=== PATIENT | male | born 1960 | race Caucasian/White ===

== ENCOUNTER → 2016-07-07 | Outpatient (CLI) | payer OTHER ==
[~2016-07-07] MED LIST: ALBUTEROL SULF8.5 GM IH; ARTHROTEC 751 TABLET; ASPIR 8181 M1 PO; BENICAR40 MG PO; CARDIZEM CD,CA120 MG; CARDURA2 M1 PO; CLONAZEPAM0.5 MG PO; CYCLOBENZAPRINE10 M1 PO; CYMBALTA30 MG PO; ELAVIL25 MG PO; HYDROCHLOROTHIA25 MG; LAMICTAL100 MG PO; LOPRESSOR100 M1 PO; Lopressor PO; PAXIL CR12.5 MG; PROTONIX40 MG PO; RISPERDAL1 MG PO; SPIRIVA1 INHALATI IH; TRAMADOL HCL50 MG; VIAGRA50 MG PO
== END | disposition home or self-care (01) ==
LOC: RES 08:00
DX: Z02.71 Encounter for disability determination (principal); J44.9 Chronic obstructive pulmonary disease, unspecified; F17.200 Nicotine dependence, unspecified, uncomplicated
CPT/HCPCS: 94010; 94729; 94760

== ENCOUNTER → 2017-03-09 | Outpatient (CLI) | payer SELFPAY | END | disposition home or self-care (01) | LOC: RAD 14:23 | DX: J43.9 Emphysema, unspecified (principal) | CPT/HCPCS: 71020 ==